=== PATIENT | female | born 1975 | race Caucasian/White ===

== ENCOUNTER 2016-11-18 14:49 | Inpatient (IN) ==
[2016-11-18 15:13] LABS: Basophils # 0.1 10*3/uL (0.0-0.2); Basophils % 0.4 % (0.0-0.8); Eosinophils # 0.1 10*3/uL (0.0-0.87); Eosinophils % 1.1 % (0.00-10.9); Hematocrit 37.4 VOL% (35.7-47.0); Hemoglobin 12.3 GM/DL (12.0-16.0); Immature Granulocytes % 0.4 %; Immature Granulocytes Absolute 0.05 #; Lymphocytes # 1.7 10*3/uL (1.4-4.0); Mean Corpuscular HGB Conc 32.9 GM/DL (32-36); Mean Corpuscular Hemoglobin 28 PG (27-34); Mean Corpuscular Volume 83.9 FL (87-102); Mean Platelet Volume 11.1 FL (9.6-12.0); Monocytes # 0.8 10*3/uL (0.11-0.8); Monocytes % 6.1 % (1.7-12.7); Neutrophils # 10.3 10*3/uL (1.4-7.4); Platelet Count 226 T/CUMM (130-400); Red Blood Count 4.46 MC/CUMM (3.8-5.5); Red Cell Distribution Width 14.4 % (9.3-17.3); White Blood Count 13.1 T/CUMM (4-12)
[2016-11-18 15:20] LABS: Apearance,Urine CLEAR (Clear); Bacteria,Urine Occasional /HPF (Few); Bilirubin,Urine Negative (Negative); Blood, Urine Negative (Negative); Glucose,Urine (UA) Negative (Negative); Ketones,Urine Negative (Negative); Mucus,Urine Occasional /LPF (Occasional); Nitrite,Urine Negative (Negative); Protein,Urine Negative; RBC,Urine <1 /HPF (0-4); Squamous Epithelial Cell,Urine Occasional /HPF (0-10); Urine Color Yellow (Yellow); Urine Specific Gravity 1.009 (1.001-1.035); Urine Urobilinogen < 2.0 EU/DL (0.2-1.0); WBC,Urine <1 /HPF (0-6)
[2016-11-18 15:55] LABS: Osmolality,Calculated 276.4 MOS/KG (273-304); Potassium 4.4 MMOL/L (3.5-5.1)
--- NOTE | 2016-11-18 17:15 | CT Report ---
CT abdomen pelvis w con Indication: Right lower quadrant abdominal pain. Comparison: None. Technique: CT of the abdomen and pelvis was performed following administration of intravenous contrast. The CT examination was performed using one or more of the following dose reduction techniques: Automatic exposure control, adjustment of the mA and kV according to patient size, or iterative reconstruction techniques. Findings: Lower chest: Mild dependent atelectatic changes are suggested bilaterally. There is a moderately sized hiatal hernia present. Borderline cardiomegaly is suggested. Liver: The liver demonstrates no evidence of focal hepatic mass or evidence of acute pathology. Gallbladder: Gallbladder demonstrates no significant abnormality. Spleen: Spleen demonstrates no significant abnormality. Pancreas: Pancreas demonstrates no significant abnormality. Adrenal glands: The adrenal glands demonstrate no significant abnormalities. Kidneys: Kidneys demonstrate no significant abnormality. Aorta: The aorta demonstrates no acute findings. Inferior vena cava: Inferior vena cava is normal in appearance. Lymph nodes: No adenopathy is noted within the abdomen or pelvis. Stomach and bowel: Stomach and duodenum demonstrate no significant abnormalities. The small bowel demonstrates no abnormality. There is a short segment of ascending colon in which there is circumferential wall thickening with the bowel wall measuring up to 13 mm. No diverticula are present. Minimal periserosal fat stranding is suggested. The appendix is normal. Ileocecal valve demonstrates no abnormality. Large bowel otherwise demonstrates no significant abnormality. Intrapelvic contents: No acute findings are noted within the pelvis. Multiple small likely follicular cysts are demonstrated involving the ovaries bilaterally. Osseous structures: The imaged osseous structures of the lumbar spine, pelvis, and proximal femurs demonstrate no acute findings. Kyphotic deformity of the lumbar spine at L1-2 is demonstrated that could reflect sequelae of prior injury. No acute fractures are present. Soft tissues and musculature: Soft tissues and musculature of the body wall demonstrate no acute findings. Impression: 1. Large bowel demonstrates a short segment of concentric wall thickening with minimal haziness along the serosal surface that could reflect inflammatory change. No diverticula are present. No involvement of the ileocecal valve or small bowel can be identified. Differential considerations could include focal colitis, inflammatory bowel disease, neoplasm, consideration of endoscopy is recommended. 11/18/2016 5:04 PM PROCEDURE INTERPRETED AT [facility] DEPARTMENT OF RADIOLOGY Final Report Signed by: Dr. Lee Maguire
[2016-11-18] MEDS ORDERED: ACETAMINOPHEN 325 MG TABLET PO PRN (17:27)
--- NOTE | 2016-11-18 18:02 | General Surg History&Physical ---
Assessment and Plan - Time spent with patient Time spent with patient: Less than 30 minutes (1) Colitis Status: Acute Assessment and plan: The etiology of this is unclear. This does not look like appendicitis. I would favor an infectious or inflammatory etiology rather than neoplasm. I did discuss this with radiology and also discussed this with Dr. Hauser from gastroenterology. I have consulted Dr. Hauser. We have started her on Cipro and Flagyl and will admit her for IV fluids and IV antibiotics. Current Visit: Yes History of Present Illness Chief complaint: Abdominal pain History of present illness: Ms. Pope is a 41 year old female Who for 2 days has had right lower quadrant abdominal pain. This pain is constant and worse with movement. It is been associated with some anorexia and some nausea but no vomiting. She has not had associated diarrhea. She has not had fever or chills. She has not felt well. She has had no vaginal discharge. We obtained a CT scan showing what appears to be a sending colitis of her cecum and ascending colon Home Medications Medication Instructions Recorded Confirmed Type Albuterol/Ipratropium Neb [Duoneb] 3 ml RESP TX RT Q4H 7 Days 12/24/14 Rx Beclomethasone 80 Mcg Inhaler 160 mcg INH BID #1 inhaler 12/24/14 Rx [Qvar 80 Mcg] Ferrous Sulfate Tab [Feosol 325 mg PO BID tablet 12/24/14 Rx Original Tab] HYDROcodone/ACETAMIN 7.5-325 1 tablet PO Q6H PRN #20 tablet 12/24/14 Rx [[place] 7.5-325] Levofloxacin Tab [Levaquin Tab] 500 mg PO DAILY #10 tablet 12/24/14 Rx Theophylline ER Tab 100 mg PO BID W/MEALS #20 tablet 12/24/14 Rx clonazePAM TAB [KlonoPIN] 0.5 mg PO BID #20 tablet 12/24/14 Rx guaiFENesin LIQUID [Robitussin] 10 ml PO Q4H PRN 10 Days 12/24/14 Rx Allergies Allergy/AdvReac Type Severity Reaction Status Date / Time No Known Allergies Allergy Unverified 12/12/14 03:03 Medical,Surgical,& Family Hx - Medical History Psychological: History of: Anxiety Disorders Respiratory: History of: Bronchitis (currently), Respiratory Problems - Surgical History Orthopedic Surgeries: Surgical HX of;: Orthopedic Surgery (Closed reduction surgeries of L ulna radius) - Social History Smoking Status: Current every day smoker Exam - Constitutional General appearance: no acute distress - Head Head exam: Present: normocephalic - Eye Eye exam: Absent: scleral icterus - ENT Mouth exam: Present: normal voice - Neck Neck exam: Present: trachea midline - Respiratory Respiratory exam: Present: clear to auscultation bilaterally. Absent: accessory muscle use - Cardiovascular Cardiovascular exam: Present: RRR - GI/Abdominal GI/Abdominal exam: Present: normal bowel sounds, tenderness, soft. Absent: distended, guarding, mass, rebound - Extremities Exam Extremities exam: Absent: edema - Neurological Exam Neurological exam: Present: alert, oriented X3. Absent: motor sensory deficit - Constitutional Constitutional: Absent: chills, fever(s) - Cardiovascular Cardiovascular: Absent: chest pain at rest, chest pain with activity, dyspnea, dyspnea on exertion - Respiratory Respiratory: Absent: cough, dyspnea, hemoptysis, dyspnea on exertion - Gastrointestinal Gastrointestinal: Present: abdominal pain, nausea. Absent: bloating, cramping, diarrhea, hematemesis, hematochezia, vomiting, jaundice - Genitourinary Genitourinary: Absent: hematuria, vaginal discharge - Musculoskeletal Musculoskeletal: Absent: back pain - Neurological Neurological: Absent: syncope - Endocrine Endocrine: Absent: polyuria Hematologic/Lymphatic: Absent: easy bleeding, easy bruising Results - Labs CBC & BMP: 11/18/16 15:03 11/18/16 15:03 Lab Results: I have reviewed the past 24 hour labs - Diagnostic Findings Procedure: CT Abdomen and Pelvis: report reviewed by me
[2016-11-18] MEDS: SODIUM CHLORIDE 0.45% 1,000 ML IV SCH (18:32)
[2016-11-18] MEDS: CIPROFLOXACIN INJ 400 MG in PREMIX 1 EACH IV SCH (18:32)
[2016-11-18] MEDS: MORPHINE 2 MG/1 ML SYRINGE IV PRN (18:43)
[2016-11-18] MEDS: ONDANSETRON 4 MG/2 ML VIAL IV PRN (18:44)
[2016-11-18] MEDS: metroNIDAZOLE INJ 500 MG in PREMIX 1 EACH IV SCH (20:53)
[2016-11-19] MEDS: SODIUM CHLORIDE 0.45% 1,000 ML IV SCH ×2 (04:30→12:53)
[2016-11-19] MEDS: metroNIDAZOLE INJ 500 MG in PREMIX 1 EACH IV SCH ×3 (05:02→21:15)
[2016-11-19 05:48] LABS: Basophils # 0.1 10*3/uL (0.0-0.2); Basophils % 0.8 % (0.0-0.8); Eosinophils # 0.2 10*3/uL (0.0-0.87); Eosinophils % 2.5 % (0.00-10.9); Hematocrit 33.6 VOL% (35.7-47.0); Hemoglobin 11.1 GM/DL (12.0-16.0); Immature Granulocytes % 0.7 %; Immature Granulocytes Absolute 0.06 #; Lymphocytes # 2.3 10*3/uL (1.4-4.0); Lymphocytes % 26.7 % (21.3-54.2); Mean Corpuscular Hemoglobin 28 PG (27-34); Mean Platelet Volume 11.7 FL (9.6-12.0); Monocytes # 0.6 10*3/uL (0.11-0.8); Monocytes % 6.9 % (1.7-12.7); Neutrophils # 5.3 10*3/uL (1.4-7.4); Neutrophils % 62.4 % (38.7-73.9); Platelet Count 213 T/CUMM (130-400); Red Cell Distribution Width 14.4 % (9.3-17.3); White Blood Count 8.5 T/CUMM (4-12)
[2016-11-19] MEDS: CIPROFLOXACIN INJ 400 MG in PREMIX 1 EACH IV SCH ×2 (06:13→17:59)
[2016-11-19 06:16] LABS: Calcium 8.2 MG/DL (8.5-10.1); Osmolality,Calculated 275.4 MOS/KG (273-304); Potassium 3.9 MMOL/L (3.5-5.1)
[2016-11-19] MEDS: PANTOPRAZOLE 40 MG TABLET PO SCH (09:15)
[2016-11-19] MEDS: ENOXAPARIN 40 MG/0.4 ML SYRINGE SUBCUT SCH (09:16)
--- NOTE | 2016-11-19 09:19 | General Surgery Progress Note ---
Assessment and Plan (1) Colitis Status: Acute Assessment and plan: The etiology of this is unclear. This does not look like appendicitis. I would favor an infectious or inflammatory etiology rather than neoplasm. I did discuss this with radiology and also discussed this with Dr. Hauser from gastroenterology. I have consulted Dr. Hauser. We have started her on Cipro and Flagyl and will admit her for IV fluids and IV antibiotics. 11/19: She feels much better and has had a marked reduction in the right lower quadrant abdominal pain. She does not feel ill. Her white blood cell count is come down to normal. We will have her evaluated by GI. Once they feel that she is okay for discharge on p.o. antibiotics we can discharge her home. Current Visit: Yes Subjective Patient reports: Present: feels better, pain is less. Absent: nausea, vomiting , shortness of breath, fever Exam - Constitutional Vitals: Period Temp Pulse Resp BP Sys/[place] Pulse Ox Last 24 Hr 97.0 F-98.4 F 63-73 18-20 88-103/50-67 94-97 General appearance: no acute distress - Head Head exam: Present: normocephalic - Eye Eye exam: Absent: scleral icterus - ENT Mouth exam: Present: normal voice - Respiratory Respiratory exam: Absent: accessory muscle use - GI/Abdominal GI/Abdominal exam: Present: soft. Absent: distended, tenderness Results - Labs CBC & BMP: 11/19/16 04:47 11/19/16 04:47 Lab Results: I have reviewed the past 24 hour labs Quality Measures - Stroke Symptom Onset Unknown: No
[2016-11-19] MEDS: ONDANSETRON 4 MG/2 ML VIAL IV PRN ×2 (09:23→17:13)
--- NOTE | 2016-11-19 10:34 | Gastrointestinal Consult Note ---
<Radha Yee - Last Filed: 11/19/16 10:31> Assessment and Plan (1) Colitis Status: Acute Assessment and plan: 11/19-3 day history of sudden onset right lower quadrant abdominal pain, sharp and stabbing in nature. No other associated symptoms. Leukocytosis on admission without fever. CT findings noted as below. No prior history of endoscopy in the past. Plan an addendum to followed by Dr. Hauser. Current Visit: Yes History of Present Illness Chief complaint: Abdominal pain History of present illness: Ms. Pope is a 41 year old female who was admitted to the hospital and on 11/18 with now 3 day history of right lower quadrant abdominal pain. Patient states that on Wednesday night she had a fairly sudden onset of severe, sharp and stabbing abdominal pain to her right lower quadrant awaken her from sleep. She states the pain was not associated with any other symptoms at that time other than some mild nausea. She denies any vomiting episodes associated with this. She denies any changes in her bowel patterns recently. Patient states that several days prior to this she is just generally not felt well however denies any fever or chills. Denies any weight loss other than warranted from dietary changes. States that she has never had this pain in the past before. States that she is fairly active and healthy. On admission patient was noted on contrasted CT of the abdomen to show large bowel short segment wall thickening with haziness along serosal surface without involvement of the ileocecal valve are small bowel. Patient states that she has a family history of Crohn's disease in her grandfather but denies any other family history regarding this. Denies any IBS symptoms prior to this. She was found on admission to have leukocytosis with WBCs at 13,000. She states that she has had some diarrhea stools since yesterday however this is possibly related to the oral contrast for her CT scan. Denies any melena or hematochezia associated with this. She has had Cipro and Flagyl IV initiated on yesterday and tolerating this well. Home Medications Medication Instructions Recorded Confirmed Type Albuterol/Ipratropium Neb [Duoneb] 3 ml RESP TX RT Q4H 7 Days 12/24/14 Rx Beclomethasone 80 Mcg Inhaler 160 mcg INH BID #1 inhaler 12/24/14 Rx [Qvar 80 Mcg] Ferrous Sulfate Tab [Feosol 325 mg PO BID tablet 12/24/14 Rx Original Tab] HYDROcodone/ACETAMIN 7.5-325 1 tablet PO Q6H PRN #20 tablet 12/24/14 Rx [[place] 7.5-325] Levofloxacin Tab [Levaquin Tab] 500 mg PO DAILY #10 tablet 12/24/14 Rx Theophylline ER Tab 100 mg PO BID W/MEALS #20 tablet 12/24/14 Rx clonazePAM TAB [KlonoPIN] 0.5 mg PO BID #20 tablet 12/24/14 Rx guaiFENesin LIQUID [Robitussin] 10 ml PO Q4H PRN 10 Days 12/24/14 Rx Allergies Allergy/AdvReac Type Severity Reaction Status Date / Time No Known Allergies Allergy Unverified 12/12/14 03:03 Medical,Surgical,& Family Hx - Medical History Psychological: History of: Anxiety Disorders Respiratory: History of: Bronchitis (currently), Respiratory Problems Gastrointestinal: History of: GERD - Surgical History Thoracic Surgeries: Patient denies;: Organ Transplant Orthopedic Surgeries: Surgical HX of;: Orthopedic Surgery (Closed reduction surgeries of L ulna radius) - Family History Family History: Reports;: Family Cancer (cancer on both sides), Family Stroke ( grandfather) - Social History Smoking Status: Current every day smoker Frequency of Alcohol Use: Rarely Type of Drug Use: None 12 point system: reviewed and no additional remarkable complaints except as stated - Constitutional Constitutional: Present: as per HPI - EENT Eyes: Present: as per HPI Ears: Present: as per HPI Nose, mouth and throat: Present: as per HPI - Cardiovascular Cardiovascular: Present: as per HPI - Respiratory Respiratory: Present: as per HPI - Gastrointestinal Gastrointestinal: Present: as per HPI, abdominal pain, nausea - Genitourinary Genitourinary: Present: as per HPI - Musculoskeletal Musculoskeletal: Present: as per HPI - Neurological Neurological: Present: as per HPI - Psychiatric Psychiatric: Present: as per HPI - Endocrine Endocrine: Present: as per HPI - Hematologic/Lymphatic Hematologic/Lymphatic: Present: as per HPI Exam - Constitutional Vitals: Period Temp Pulse Resp BP Sys/[place] Pulse Ox Last 24 Hr 97.0 F-98.4 F 63-73 18-20 88-103/50-67 94-97 General appearance: normal weight, no acute distress - Head Head exam: Present: normal inspection, normocephalic - Eye Eye exam: Present: other (Lids and conjunctive are unremarkable). Absent: scleral icterus - ENT ENT exam: Present: normal exam, normal oropharynx - Neck Neck exam: Present: normal inspection - Respiratory Respiratory exam: Present: clear to auscultation bilaterally. Absent: rales, rhonchi, wheezes - Cardiovascular Cardiovascular exam: Present: regular rate and rhythm. Absent: diastolic murmur , JVD, systolic murmur - GI/Abdominal GI/Abdominal exam: Present: normal bowel sounds, tenderness (Right lower quadrant), soft. Absent: ascites, distended, mass, organomegaly - Extremities Exam Extremities exam: Present: normal inspection, full ROM - Back Exam Back exam: Present: normal inspection - Neurological Exam Neurological exam: Present: alert, oriented X3 - Psychiatric Psychiatric exam: Present: normal affect, normal mood - Skin Skin exam: Present: normal color, warm, dry Results - Labs CBC & BMP: 11/19/16 04:47 11/19/16 04:47 Lab Results: I have reviewed the past 24 hour labs - Diagnostic Findings Procedure: CT Abdomen and Pelvis: report reviewed by me Quality Measures - Stroke Symptom Onset Unknown: No <Giancarlo Hauser - Last Filed: 11/19/16 17:29> History of Present Illness History of present illness: Ms. Pope is a 41 year old female Exam - Constitutional Vitals: Period Temp Pulse Resp BP Sys/[place] Pulse Ox Last 24 Hr 96.5 F-98.4 F 52-73 18-20 88-103/50-67 94-97 Results - Labs CBC & BMP: 11/19/16 04:47 11/19/16 04:47
[2016-11-19] MEDS: MORPHINE 2 MG/1 ML SYRINGE IV PRN ×2 (11:15→20:41)
[2016-11-19] MEDS ORDERED: BISACODYL 5 MG TABLET PO ONE (13:00)
[2016-11-19] MEDS ORDERED: POLYETHYLENE GLYCOL POWDER 255 GM BOTTLE PO ONE (13:00)
[2016-11-19] MEDS ORDERED: MAGNESIUM CITRATE 300 ML BOTTLE PO ONE (21:00)
[2016-11-20] MEDS: ONDANSETRON 4 MG/2 ML VIAL IV PRN (00:46)
[2016-11-20] MEDS: SODIUM CHLORIDE 0.45% 1,000 ML IV SCH ×4 (04:30→19:44)
[2016-11-20] MEDS: metroNIDAZOLE INJ 500 MG in PREMIX 1 EACH IV SCH ×3 (05:32→21:20)
[2016-11-20] MEDS: CIPROFLOXACIN INJ 400 MG in PREMIX 1 EACH IV SCH ×2 (06:28→17:36)
--- NOTE | 2016-11-20 06:56 | General Surgery Progress Note ---
Assessment and Plan (1) Colitis Status: Acute Assessment and plan: The etiology of this is unclear. This does not look like appendicitis. I would favor an infectious or inflammatory etiology rather than neoplasm. I did discuss this with radiology and also discussed this with Dr. Hauser from gastroenterology. I have consulted Dr. Hauser. We have started her on Cipro and Flagyl and will admit her for IV fluids and IV antibiotics. 11/19: She feels much better and has had a marked reduction in the right lower quadrant abdominal pain. She does not feel ill. Her white blood cell count is come down to normal. We will have her evaluated by GI. Once they feel that she is okay for discharge on p.o. antibiotics we can discharge her home. 11/20: She looks and feels much better and has had marked decrease in her pain. She is for colonoscopy this morning. I think that she has responded fluids and antibiotics. I will leave discharge plans up to Dr. Hauser. I will be happy to see her back in follow-up. Current Visit: Yes Subjective Patient reports: Present: feels better, pain is less. Absent: nausea, vomiting , fever Exam - Constitutional Vitals: Period Temp Pulse Resp BP Sys/[place] Pulse Ox Last 24 Hr 96.5 F-98.7 F 52-73 18-20 92-107/49-67 94-97 General appearance: no acute distress - Head Head exam: Present: normocephalic - Eye Eye exam: Absent: scleral icterus - Respiratory Respiratory exam: Absent: accessory muscle use - GI/Abdominal GI/Abdominal exam: Present: soft. Absent: distended, guarding, mass, tenderness , rebound Results - Labs CBC & BMP: 11/19/16 04:47 11/19/16 04:47 Lab Results: I have reviewed the past 24 hour labs Quality Measures - Stroke Symptom Onset Unknown: No
[2016-11-20] MEDS: MORPHINE 2 MG/1 ML SYRINGE IV PRN ×3 (08:44→19:39)
[2016-11-20] MEDS: PANTOPRAZOLE 40 MG TABLET PO SCH (09:10)
--- NOTE | 2016-11-20 11:39 | History and Physical Update ---
History and Physical Update - Physical Exam Mental Status: alert and oriented Heart: regular rate and rhythm Lung: clear to auscultation Abdomen: within normal limits Vitals: within normal limits
--- NOTE | 2016-11-20 11:43 | Operative Note ---
Date of procedure: 11/20/16 Pre-op diagnosis: Abnormal CT with a ascending colitis right lower quadrant pain Procedure: Colonoscopy with biopsy. 41-year-old white female with several day history of acute onset right lower quadrant pain CT suggests a ascending colitis focal. She is now for colonoscopy to further evaluate. Informed symptoms obtained patient She was sedated with MAC anesthesia per anesthesia protocol. Patient placed in left lateral decubitus position digital exam was normal the Olympus flexible video colonoscope [place] canal vessel direct vision level cecum identify obvious ago valve appendiceal orifice. Withdrawal time 8 minutes Prep fair to good Findings: Cecum-normal identify obvious ago valve appendiceal orifice Terminal ileum-normal Ascending colon in the proximal ascending colon there is a focal area approximately 6 cm distal to the ileocecal valve with diffuse colitis ulceration and purulence biopsies were taken. This lesion is suspicious for possible Crohn's. Transverse colon-normal Descending colon-normal Sigmoid colon-normal Rectum-normal to direct and retroflexed views. The procedure was terminated placed our procedure well she is discharged recovery in good condition. Postop diagnosis: 1. Ascending colitis of unclear etiology follow-up path continue antibiotics for perspective Crohn's. Check inflammatory bowel disease panel as well. If tolerates advancing diet can change to p.o. antibiotics and discharge Wednesday for follow-up as an outpatient. Anesthesia: MAC Surgeon / Physician: Giancarlo Hauser Estimated blood loss: none Specimens: other (ascending colitis) Condition: stable Disposition: post procedure unit Results - Labs CBC & BMP: 11/19/16 04:47 11/19/16 04:47 Discharge Plan - Discharge Medications No Action clonazePAM TAB [KlonoPIN] 0.5 mg PO BID #20 tablet Dextroamphetamine/Amphetamine [Adderall 30 mg Tablet] 30 mg PO QAM FLUoxetine [PROzac] 10 mg PO DAILY Dextroamphetamine/Amphetamine [Adderall 10 mg Tablet] 10 mg PO BEDTIME - Follow Up or Referral - Forms/Instructions
--- NOTE | 2016-11-20 11:44 | Anesthesia Post-Op ---
Anesthesia Post OP - Post Ansesthetic Evaluation Patient seen in post op: Yes Resp: within normal limits CV: within normal limits Mental: within normal limits Temp: within normal limits [id number]: within normal limits Nausea and Vomiting: within normal limits Pain: within normal limits
[2016-11-20] MEDS ORDERED: PROPOFOL 200 MG/20 ML VIAL IV ONE (12:09)
[2016-11-20] MEDS ORDERED: LIDOCAINE 100 MG/5 ML SYRINGE ONE (12:09)
[2016-11-20] MEDS: ENOXAPARIN 40 MG/0.4 ML SYRINGE SUBCUT SCH (13:01)
[2016-11-21] MEDS: MORPHINE 2 MG/1 ML SYRINGE IV PRN ×2 (04:48→10:55)
[2016-11-21] MEDS: metroNIDAZOLE INJ 500 MG in PREMIX 1 EACH IV SCH (04:53)
[2016-11-21] MEDS: SODIUM CHLORIDE 0.45% 1,000 ML IV SCH (04:57)
[2016-11-21] MEDS: CIPROFLOXACIN INJ 400 MG in PREMIX 1 EACH IV SCH (06:02)
[2016-11-21] MEDS: PANTOPRAZOLE 40 MG TABLET PO SCH (08:21)
[2016-11-21] MEDS: ENOXAPARIN 40 MG/0.4 ML SYRINGE SUBCUT SCH (08:22)
--- NOTE | 2016-11-21 12:02 | Discharge Summary ---
Hospital Course - Hospital Course Hospital Course: Discharge summary. Discharge diagnosis: Colitis right colon Procedure: Colonoscopy per Dr. Hauser Brief summary: Patient was admitted with abdominal pain primarily right side but found on CT to have what looked like colitis. Dr. Hauser scope the patient and confirmed there are some ulcerations in the colon at this time. He feels like that she could be discharged on the oral antibiotics at this time since she is clinically better. - Time spent with patient Time with patient DS: Greater than 30 minutes Diagnosis - Discharge Diagnosis (1) Colitis Status: Chronic Specialty Discharge - Follow Up or Referrals Follow up with: Jc Loza III., MD [Physician] - 2 Weeks Giancarlo Hauser MD [Physician] - 2 Weeks Discharge Plan - Discharge Data Disposition: Disch To Home/Self Care Condition at Discharge: Stable Discharge Diet: advance to your usual diet Hygiene: may shower Weight Bearing at Discharge: full weight bearing Driving: no restrictions Contact your physician if you experience:: fever over 101, Nausea/Vomiting, pain uncontrolled by pain medications - Discharge Medications New Ciprofloxacin Tab [Cipro Tab] 500 mg PO BID #20 tablet HYDROcodone/ACETAMIN 5-325 [[place] 5-325] 1 tablet PO Q6H PRN #14 tablet PRN Reason: Pain Moderate (4-7) metroNIDAZOLE TAB [Flagyl Cap/Tab] 500 mg PO TID #30 tablet Acetaminophen Tab [Tylenol Tab] 650 mg PO Q6H PRN tablet PRN Reason: Pain Mild (1-3) And/Or Fever Continue clonazePAM TAB [KlonoPIN] 0.5 mg PO BID #20 tablet Dextroamphetamine/Amphetamine [Adderall 30 mg Tablet] 30 mg PO QAM FLUoxetine [PROzac] 10 mg PO DAILY Dextroamphetamine/Amphetamine [Adderall 10 mg Tablet] 10 mg PO BEDTIME - Follow Up or Referral - Forms/Instructions Exam - Constitutional Vitals: Period Temp Pulse Resp BP Sys/[place] Pulse Ox Last 24 Hr 97.3 F-98.4 F 55-86 16-22 102-133/62-82 93-99 - GI/Abdominal GI/Abdominal exam: Present: hypoactive bowel sounds, tenderness (Tenderness in the abdomen right lower quadrant area is much less still little bit of guarding but minimal.), soft. Absent: distended - Neurological Exam Neurological exam: Present: alert, oriented X3, CN II-XII intact - Psychiatric Psychiatric exam: Present: anxious Discharge Results Procedures and tests throughout hospitalization: Pending Orders 11/20/16 13:22 PROMETHEUS IBD sgi Diagnositic Routine DS: Provider Date of admission: 11/18/16 17:21 Primary care physician: Marck Gilbert MD Attending physician on admission: Jc Loza, III., Consults: 11/18/16 17:29 Consult to Physician [CONS] Routine Comment: Colitis Consulting Provider: Giancarlo Hauser Consult Notification Comment: Pt has been seen per reports. Discharging clinician: Ozzie Ledesma MD Expected date of discharge: 11/21/16
[2016-11-21 13:24] VITALS: BP 120/68
--- NOTE | 2016-11-23 13:39 | Pathology Report from [facility] ---
[facility] ACCESSION # : [id number] PATIENT NAME : Lata Guillaume ORDERING DR : ARUNA FENTON MD CLINICAL HX: Abdominal pain POST-OP DX: Colonic ulceration SPECIMEN INFO: Proximal ascending colon GROSS DESCRIPTION: The specimen is received in formalin labeled with the patients name LATA GUILLAUME is numerous 0.1 cm to 0.2 cm virgen tissue fragments. Submitted entirely in one cassette. DIAGNOSIS FOR LATA GUILLAUME: PROXIMAL ASCENDING COLON BIOPSY: Ulceration; adjacent colonic mucosal fragments with acute and chronic inflammation, benign lymphoid aggregates; no granulomas or crypt abscesses seen. No evidence of collagenous/lymphocytic colitis, ischemic changes, pseudomembrane, or malignancy. Consider possible solitary ulceration, inflammatory bowel disease/ Crohns disease, etc. COLLECTED DATE: 11/22/2016 [facility] REPORT DATE: 11/23/2016 ELECTRONICALLY SIGNED BY: Sonya Corbett M.D. 11/23/2016 - 9:46:52 [facility]
== END 2016-11-21 13:50 | disposition home or self-care (01) | DRG 392 ==
LOC: N.CT 14:49 → N.2E 17:20
PROVIDERS: ADMIT Surgery; ATTEND Surgery
PROC: COLONBX (2016-11-20 09:05)